=== PATIENT | male | born 1960 | race Two or more races ===

== ENCOUNTER → 2018-11-15 | Outpatient (CLI) | payer BC | END | disposition home or self-care (01) | LOC: CARD 08:30 | PROVIDERS: ATTEND Nurse Practitioner Family | DX: G40.909 Epilepsy, unspecified, not intractable, without status epilepticus (principal) | CPT/HCPCS: 95819 ==

== ENCOUNTER → 2018-11-18 | Outpatient (CLI) | payer BC ==
[~2018-11-18] MED LIST: GADOBUTROL 10 MMOL/10 ML PFS ONE
== END | disposition home or self-care (01) ==
LOC: CFH 14:55
PROVIDERS: ATTEND Nurse Practitioner Family
DX: G40.909 Epilepsy, unspecified, not intractable, without status epilepticus (principal)
CPT/HCPCS: 70553; A9585

== ENCOUNTER → 2019-11-13 | Outpatient (CLI) | payer BC ==
[~2019-11-13] MED LIST changes: +ASPI81TA45 PO; +ATOR40TA78 PO; -GADOBUTROL 10 MMOL/10 ML PFS ONE; +LAMO25TA9 PO; +LEVO75TA5 PO; +LISI-167 PO; +METF850T10 PO; +NITR0.4T28 SL; +PHEN100C4 PO; +PRAV40TA2 PO; +ROSU5TAB PO; +TICA90TA PO
== END | disposition home or self-care (01) ==
LOC: CFH 15:50
PROVIDERS: ATTEND Internal Medicine Cardiovascular Disease
DX: I34.8 Other nonrheumatic mitral valve disorders (principal); I21.4 Non-ST elevation (NSTEMI) myocardial infarction; I25.10 Atherosclerotic heart disease of native coronary artery without angina pectoris; I10 Essential (primary) hypertension; E78.5 Hyperlipidemia, unspecified
CPT/HCPCS: 93306